=== PATIENT | male | born 1980 | race Hispanic/Latino ===

== ENCOUNTER 2023-07-06 17:53 | Emergency (ER) | payer OTHER, SELFPAY ==
--- NOTE | ~2023-07-06 | CT_ITS ---
EXAMINATION: CT abdomen pelvis w con INDICATION: Abdominal pain, possible strangulate hernia TECHNIQUE: Computed tomographic images of the abdomen and pelvis were obtained after the administrati on of 100 cc of Omnipaque 350 intravenous contrast. The dose-length product (DLP) was 741.61 mGy-cm. Automated exposure control and iterative reconstruction technique were employed. COMPARISON: None available FINDINGS: Minimal dependent atelectasis is present in the lung bases. The heart size is normal. The l iver is diffusely low in attenuation when compared with the spleen, consistent with hepatic steatosis . The spleen, pancreas, gallbladder, and adrenal glands are normal. The kidneys are unremarkable. No pathologically enlarged abdominal or pelvic lymph nodes are identified. No free intraperitoneal gas o r evidence of bowel obstruction. There is a small to moderate-sized umbilical hernia containing fat. There is mild infiltration of the herniated fat. The appendix is normal. There is mild lumbar spondyl osis. IMPRESSION: 1. Small to moderate-sized umbilical hernia containing fat mild infiltration of the herniated fat whi ch could reflect edema. 2. Diffuse hepatic steatosis. Reviewed, dictated and finalized at location F. IMPRESSION: 1. Small to moderate-sized umbilical hernia containing fat mild infiltration of the herniated fat which could reflect edema. 2. Diffuse hepatic steatosis.
[2023-07-06 18:03] VITALS: BP 149/101; PULSE 72; RESP 18; TEMP 36.2; O2SAT 98
--- NOTE | 2023-07-06 18:58 | ED.GENADULT ---
HPI - General Adult General Chief complaint: Unspecified <Marlon Walker PA-C - Last Filed: 07/06/23 19:03> Stated complaint: umbilical hernia wont reduce <Marlon Walker PA-C - Last Filed: 07/06/23 19:03> Time Seen by Provider: 07/06/23 18:59 <Marlon Walker PA-C - Last Filed: 07/06/23 19:03> Source: patient and family <Marlon Walker PA-C - Last Filed: 07/06/23 19:03> Mode of arrival: ambulatory <Marlon Walker PA-C - Last Filed: 07/06/23 19:03> Limitations: no limitations and language barrier <Marlon Walker PA-C - Last Filed: 07/06/23 19:03> History of Present Illness HPI narrative: This is a 43-year-old male who presents with his family members and chief complaint of possible umbilical hernia. Reports he was sent here by his PCP for possible surgical referral. Reports that he has had this umbilical hernia for 6 to 8 months but states today it is feeling more painful while at work. He states his PCP was concerned that the hernia may need surgery. Reports pain is 5 out of 10 at baseline and limited only to the site of the hernia. He is unable to reduce. Denies fevers, chills, urinary problems, nausea, vomiting. <Marlon Walker PA-C - Last Filed: 07/06/23 19:03> 43-year-old male reports with his family for evaluation of a umbilical hernia. Patient was sent here by his PCP for evaluation. Patient states he developed a umbilical hernia approximately a year ago. 3 months ago, he began having difficulty reducing it and so his PCP, Dr. Forte, ordered a ultrasound at that time. He was scheduled to have an appoint with his PCP tomorrow, however they advised him to come to the ED today for further evaluation given he has began developing pain in the hernia for 2 weeks. He denies fever, body aches or chills, chest pain or shortness of breath, diarrhea, constipation, nausea or vomiting, urinary complaints. Last bowel movement was today and normal. No prior surgeries on his abdomen. <Dayana Rasmussen PA-C - Last Filed: 07/07/23 02:23> Related Data Allergies/adverse reactions: Allergies Allergy/AdvReac Type Severity Reaction Status Date / Time No Known Allergies Allergy Verified 01/04/20 12:21 <Marlon Walker PA-C - Last Filed: 07/06/23 19:03> Review of Systems Review of Systems: All systems as dictated in HPI <Marlon Walker PA-C - Last Filed: 07/06/23 19:03> CONSTITUTIONAL: Denies fever, chills EYES: Denies visual changes, redness, or discharge. ENT: Denies rhinorrhea, congestion, sore throat, or otalgia. CARDIOVASCULAR: Denies chest pain, palpitations, or edema. RESPIRATORY: Denies cough or dyspnea. GASTROINTESTINAL: See HPI GENITOURINARY: Denies dysuria or hematuria. SKIN: Denies rash or itching. MUSCULOSKELETAL: Denies back pain, joint pain, or myalgia. NEUROLOGIC: Denies headache, numbness, dizziness, or weakness. PSYCHIATRIC: Denies anxiety or depression. <Dayana Rasmussen PA-C - Last Filed: 07/07/23 02:23> [facility] Social History Social History: Social History Gender identity (if verbalized by the patient): Male <Marlon Walker PA-C - Last Filed: 07/06/23 19:03> Exam Narrative: GENERAL: Well-appearing, well-nourished, and in no acute distress. HEAD: Normocephalic, atraumatic. EYES: PERRLA and EOMI. ENT: Nares clear, no rhinorrhea or epistaxis. Mucous membranes moist. Oropharynx without tonsillar hypertrophy exudate or other lesions. NECK: Supple. No adenopathy or masses. CHEST: No respiratory distress. Clear to auscultation. No wheezes rales or rhonchi HEART: Regular rate and rhythm. No murmur heard. Normal peripheral pulses. ABDOMEN: There is a central umbilical hernia present. Mild skin discoloration overlying. Unable to reduce the hernia. It is quite tender to palpation when trying to reduce the hernia. Soft, otherwise nontender, nondistended, normal active bowel sounds. MSK:
[2023-07-06 18:59] LABS: Basophils Percent Auto 0.6 % (0.2-1.2); Eosinophils Absolute Auto 0.2 K/mm3 (0-0.3); Eosinophils Percent Auto 3.1 % (0-4.4); Hemoglobin 15.2 g/dL (14.0-18.0); Immature Granulocyte Absolute 0.03 K/mm3 (0.00-0.031); Immature Granulocyte Percent A 0.5 % (0-0.5); Lymphocytes Absolute Auto 2.38 K/mm3 (0.9-3.2); Mean Corpuscular HGB Conc 33.8 g/dl (32-36); Mean Corpuscular Hemoglobin 29.1 pg (26-34); Mean Corpuscular Volume 86.2 fl (80-100); Mean Platelet Volume 10.1 fl (7.4-10.4); Monocytes Absolute Auto 0.6 K/mm3 (0.1-0.6); Neutrophils Absolute Auto 3.2 K/mm3 (1.3-6.7); Neutrophils Percent Auto 49.8 % (45.5-73.1); Platelet Count Result 219 k/mm3 (150-375); Red Blood Count 5.22 M/mm3 (4.6-6.20); Red Cell Distribution Width 12.2 % (11.5-14.5); White Blood Count 6.4 K/mm3 (4.5-10.0)
[2023-07-06 19:03] LABS: Estimated CRCL calculation 87 ml/min; Estimated Glomerular Filt Rate > 60
[2023-07-06 19:12] LABS: Alanine Aminotransferase 69 U/L (6-50); Albumin Level 4.4 g/dL (3.5-5.1); Alkaline Phosphatase 63 U/L (38-126); Anion Gap 6 mmol/L (8-16); Aspartate Amino Transferase 31 U/L (17-59); Bilirubin,Total 0.5 mg/dL (0.2-1.3); Blood Urea Nitrogen 18 mg/dL (9-20); CRP < 0.5 mg/dL (<1.0); Calcium 9.2 mg/dL (8.4-10.2); Carbon Dioxide 27 mmol/L (22-30); Chloride 104 mmol/L (98-107); Estimated CRCL calculation 87 ml/min; Estimated Glomerular Filt Rate > 60; Glucose 94 mg/dL (65-110); Potassium 4.1 mmol/L (3.4-5.0); Sodium 137 mmol/L (137-145)
[2023-07-06 21:30] VITALS: BP 153/111; PULSE 68; RESP 16; O2SAT 100
[2023-07-06] MEDS: MORPHINE SULFATE (*CRX) 4 MG/ML INJ IV PUSH (22:08)
[2023-07-06] MEDS: KETOROLAC 30 MG/ML VIAL (*BKC) IV PUSH (22:08)
[2023-07-07 00:19] VITALS: BP 131/94; PULSE 59; RESP 18; O2SAT 99
== END 2023-07-07 00:21 | disposition home or self-care (01) ==
PROVIDERS: Physician Assistant; Emergency Provider Physician Assistant
DX: K42.0 Umbilical hernia with obstruction, without gangrene (principal); K76.0 Fatty (change of) liver, not elsewhere classified
CPT/HCPCS: 36415; 74177; 80053; 85025; 86140; 96374; 96375; 99284; J1885; J2270; Q9967